=== PATIENT | female | born 1995 | race Caucasian/White ===

== ENCOUNTER 2016-11-08 12:37 | Inpatient (IN) | payer OTHER ==
[~2016-11-08] VITALS: Ht 180.3 cm; Wt 71.0 kg
[2016-11-08] MEDS ORDERED: MORPHINE SULFATE 4 MG/ML, 1ML ONE ×2 (13:23→15:52)
[2016-11-08] MEDS ORDERED: FAMOTIDINE 20 MG/2 ML ONE (13:23)
[2016-11-08] MEDS ORDERED: ONDANSETRON 2MG/ML, 2ML ONE ×2 (13:23→15:52)
[2016-11-08] MEDS ORDERED: SODIUM CHLORIDE 0.9% 1,000ML IVBOLUS ONE (13:30)
[2016-11-08] MEDS ORDERED: FAMOTIDINE 20 MG/2 ML IVP ONE (13:30)
[2016-11-08] MEDS: MORPHINE SULFATE 4 MG/ML, 1ML IVPush PRN ×2 (13:30→15:57)
[2016-11-08] MEDS ORDERED: SODIUM CHLORIDE FLUSH 10ML SYR IVF ONE (13:30)
[2016-11-08] MEDS ORDERED: ONDANSETRON 2MG/ML, 2ML IVPush ONE ×3 (13:30→18:30)
[2016-11-08 13:43] LABS: ASPARTATE AMINO TRANSFERASE 36 U/L (15-37); BLOOD UREA NITROGEN 8 mg/dL (7-18)
[2016-11-08 14:03] LABS: DIFF TOTAL CELLS COUNTED 100 CELL DIFF
[2016-11-08 14:06] LABS: POLYCHROMASIA 1+; VERIFY COUNTS? YES
[2016-11-08] MEDS ORDERED: OMNIPAQUE 350 MG/ML, 100ML BOTTLE ONE (17:18)
[2016-11-08] MEDS ORDERED: HYDROmorphone 1 MG/ML, 1ML IVPush PRN (18:30)
[2016-11-08] MEDS ORDERED: ACETAMINOPHEN 500 MG TABLET PO ONE (18:30)
[2016-11-08] MEDS ORDERED: SODIUM CHLORIDE 0.9% 1,000 ML IV ONE (18:31)
[2016-11-08] MEDS ORDERED: METRONIDAZOLE PMX 500MG/100ML 100 ML ONE (18:53)
[2016-11-08] MEDS ORDERED: ACETAMINOPHEN 500 MG TABLET ONE (18:53)
[2016-11-08] MEDS ORDERED: HYDROmorphone 1 MG/ML, 1ML ONE (18:53)
[2016-11-08] MEDS ORDERED: METRONIDAZOLE PMX 500MG/100ML 100 ML IVPB ONE (19:00)
[2016-11-08] MEDS ORDERED: SODIUM CHLORIDE FLUSH 10ML SYR IVF PRN (19:30)
[2016-11-08] MEDS ORDERED: ONDANSETRON 2MG/ML, 2ML IVP PRN (20:00)
[2016-11-08] MEDS: VANCOMYCIN 50 MG/ML ORAL SUSP PO SCH (23:37)
[2016-11-09] VITALS (7 sets, daily range): BP systolic 88–111; BP diastolic 44–93
[2016-11-09] MEDS: SODIUM CHLORIDE 0.9% 1,000 ML IV SCH ×3 (00:40→23:37)
[2016-11-09] MEDS: MORPHINE SULFATE 4 MG/ML, 1ML IVPush PRN ×3 (01:14→17:30)
[2016-11-09 05:04] LABS: ASPARTATE AMINO TRANSFERASE 32 U/L (15-37); BLOOD UREA NITROGEN 8 mg/dL (7-18)
[2016-11-09] MEDS: ACETAMINOPHEN 325 MG TABLET PO PRN ×2 (05:09→20:47)
[2016-11-09] MEDS ORDERED: MAGNESIUM SULFATE PMX 2GM/50ML 50 ML IV ONE (05:30)
[2016-11-09 05:52] LABS: DIFF TOTAL CELLS COUNTED 100 CELL DIFF
[2016-11-09 05:53] LABS: VERIFY COUNTS? YES
[2016-11-09 05:54] LABS: POLYCHROMASIA 1+
[2016-11-09] MEDS: VANCOMYCIN 50 MG/ML ORAL SUSP PO SCH ×4 (07:23→23:37)
[2016-11-09] MEDS: HYDROmorphone 1 MG/ML, 1ML IVPush PRN ×3 (08:04→21:09)
[2016-11-09] MEDS: ENOXAPARIN 40 MG/0.4 ML SQ SCH (12:14)
[2016-11-09] MEDS: ONDANSETRON 2MG/ML, 2ML IVP PRN ×2 (12:14→18:11)
[2016-11-09] MEDS: LACTOBACILLUS 1GM/ PACKET PO SCH ×2 (16:38→20:47)
[2016-11-10 02:44] VITALS: BP 102/66
[2016-11-10] MEDS: HYDROmorphone 1 MG/ML, 1ML IVPush PRN ×4 (03:48→21:50)
[2016-11-10] MEDS: ACETAMINOPHEN 325 MG TABLET PO PRN (03:48)
[2016-11-10] MEDS: ONDANSETRON 2MG/ML, 2ML IVP PRN ×4 (03:49→21:50)
[2016-11-10 04:01] LABS: BLOOD UREA NITROGEN 7 mg/dL (7-18)
[2016-11-10] MEDS: VANCOMYCIN 50 MG/ML ORAL SUSP PO SCH ×3 (06:16→18:01)
[2016-11-10 08:02] VITALS: BP 98/57
[2016-11-10] MEDS: LACTOBACILLUS 1GM/ PACKET PO SCH ×3 (09:42→21:51)
[2016-11-10] MEDS: ENOXAPARIN 40 MG/0.4 ML SQ SCH (12:00)
[2016-11-10] MEDS: SODIUM CHLORIDE 0.9% 1,000 ML IV SCH ×2 (12:00→21:51)
[2016-11-10 13:27] VITALS: BP 107/64
[2016-11-10 19:28] VITALS: BP 106/59
[2016-11-11] MEDS: VANCOMYCIN 50 MG/ML ORAL SUSP PO SCH ×4 (00:20→18:07)
[2016-11-11 01:47] VITALS: BP 95/49
[2016-11-11] MEDS: HYDROmorphone 1 MG/ML, 1ML IVPush PRN ×2 (03:17→09:15)
[2016-11-11] MEDS: ONDANSETRON 2MG/ML, 2ML IVP PRN ×3 (03:17→22:53)
[2016-11-11 05:42] LABS: BLOOD UREA NITROGEN 7 mg/dL (7-18)
[2016-11-11] MEDS: SODIUM CHLORIDE 0.9% 1,000 ML IV SCH (06:47)
[2016-11-11] MEDS: NYSTATIN 500,000 UNITS/5 ML UDC PO SCH ×4 (06:47→20:49)
[2016-11-11 08:35] VITALS: BP 100/54
[2016-11-11] MEDS: LACTOBACILLUS CHEW TABLET PO SCH ×3 (09:15→20:49)
[2016-11-11] MEDS: D5%-0.45% NACL 1,000 ML IV SCH ×2 (09:16→18:08)
[2016-11-11] MEDS: ENOXAPARIN 40 MG/0.4 ML SQ SCH (12:00)
[2016-11-11 14:29] VITALS: BP 102/62
[2016-11-11] MEDS: OXYcodone/APAP 5/325MG TABLET PO PRN (16:08)
[2016-11-11 19:32] VITALS: BP 108/58
[2016-11-12] MEDS: VANCOMYCIN 50 MG/ML ORAL SUSP PO SCH ×4 (00:11→18:23)
[2016-11-12] MEDS: OXYcodone/APAP 5/325MG TABLET PO PRN (00:18)
[2016-11-12] MEDS: D5%-0.45% NACL 1,000 ML IV SCH (00:30)
[2016-11-12 03:58] VITALS: BP 101/52
[2016-11-12 05:58] LABS: BLOOD UREA NITROGEN 3 mg/dL (7-18)
[2016-11-12] MEDS: NYSTATIN 500,000 UNITS/5 ML UDC PO SCH ×4 (06:18→20:54)
[2016-11-12 08:24] VITALS: BP 103/56
[2016-11-12] MEDS: LACTOBACILLUS CHEW TABLET PO SCH ×3 (09:44→20:54)
[2016-11-12] MEDS: ENOXAPARIN 40 MG/0.4 ML SQ SCH (11:33)
[2016-11-12] MEDS ORDERED: POTASSIUM CHLORIDE 40 MEQ in SODIUM CHLORIDE 0.9% 500 ML IV ONE (13:30)
[2016-11-12 14:07] VITALS: BP 114/66
[2016-11-12 19:51] VITALS: BP 109/73
[2016-11-13] MEDS: VANCOMYCIN 50 MG/ML ORAL SUSP PO SCH ×3 (00:08→11:30)
[2016-11-13 03:58] VITALS: BP 107/56
[2016-11-13 05:20] LABS: BLOOD UREA NITROGEN 2 mg/dL (7-18)
[2016-11-13] MEDS: NYSTATIN 500,000 UNITS/5 ML UDC PO SCH ×2 (05:27→11:30)
[2016-11-13 05:36] LABS: DIFF TOTAL CELLS COUNTED 100 CELL DIFF
[2016-11-13 05:44] LABS: VERIFY COUNTS? YES
[2016-11-13 05:45] LABS: POLYCHROMASIA 1+
[2016-11-13] MEDS: LACTOBACILLUS CHEW TABLET PO SCH (08:25)
[2016-11-13 08:32] VITALS: BP 109/72
[2016-11-13] MEDS: ENOXAPARIN 40 MG/0.4 ML SQ SCH (11:30)
[2016-11-13] MEDS ORDERED: ACID1TAB7 PO (14:39)
[2016-11-13] MEDS ORDERED: POTA20TA6 PO (14:39)
[2016-11-13] MEDS ORDERED: VANC1VIA3 PO (14:39)
== END 2016-11-13 15:52 | disposition home or self-care (01) | DRG 371 ==
LOC: ED 13:13 → SUATTDRO 18:56 → EDIP 19:09 → 3NE 21:14
PROC: 0T9B70Z Drainage of Bladder with Drainage Device, Via Natural or Artificial Opening (ICD-10-PCS; principal; 2016-11-08)
DX: A04.7 Enterocolitis due to Clostridium difficile (principal); E43 Unspecified severe protein-calorie malnutrition; E87.1 Hypo-osmolality and hyponatremia; D72.825 Bandemia; E86.0 Dehydration; Z86.19 Personal history of other infectious and parasitic diseases; E87.6 Hypokalemia; Z80.41 Family history of malignant neoplasm of ovary; Z84.89 Family history of other specified conditions; Z88.0 Allergy status to penicillin; Z68.21 Body mass index [BMI] 21.0-21.9, adult
CPT/HCPCS: 36415; 71010; 74000; 74177; 80048; 80053; 81003; 83605; 83690; 83735; 84145; 84703; 85025; 86677; 87040; 87046; 87081; 87324; 87328; 87329; 87493; 87880; 87899; 89055; 93005; 96361; 96374; 96375; 96376; J1170; J1650; J2405; J3370; J3480; Q9967; J3475; J7030; J7040; S0028

== ENCOUNTER 2016-12-02 03:04 | Emergency (ER) | payer OTHER ==
[~2016-12-02] VITALS: Ht 180.3 cm; Wt 69.0 kg
[~2016-12-02 03:04] MED LIST: ACID1TAB7 PO; POTA20TA6 PO; VANC1VIA3 PO
[2016-12-02] MEDS ORDERED: FAMOTIDINE 20 MG/2 ML IVP ONE (03:30)
[2016-12-02] MEDS ORDERED: SODIUM CHLORIDE 0.9% 1,000ML IVBOLUS ONE (03:30)
[2016-12-02] MEDS ORDERED: ONDANSETRON 2MG/ML, 2ML IVPush ONE (03:30)
[2016-12-02] MEDS ORDERED: MORPHINE SULFATE 4 MG/ML, 1ML IVPush PRN (03:30)
[2016-12-02] MEDS ORDERED: MORPHINE SULFATE 4 MG/ML, 1ML ONE (03:41)
[2016-12-02] MEDS ORDERED: FAMOTIDINE 20 MG/2 ML ONE (03:42)
[2016-12-02] MEDS ORDERED: ONDANSETRON 2MG/ML, 2ML ONE (03:42)
[2016-12-02 04:11] LABS: BLOOD UREA NITROGEN 14 mg/dL (7-18)
[2016-12-02 04:16] LABS: ASPARTATE AMINO TRANSFERASE 30 U/L (15-37)
[2016-12-02 04:25] LABS: HCG UR OBC PASS
[2016-12-02 05:25] VITALS: BP 115/58
== END 2016-12-02 05:29 | disposition home or self-care (01) ==
LOC: ED 03:28
DX: K29.00 Acute gastritis without bleeding (principal)
CPT/HCPCS: 36415; 80053; 81003; 81025; 83690; 85025; 96361; 96374; 96375; 99284; J2405; J7030; S0028